=== PATIENT | female | born 1990 ===

== ENCOUNTER → 2018-11-06 | Outpatient (CLI) | payer OTHER ==
--- NOTE | 2018-11-06 12:27 | RADIOLOGY IMAGING REPORT ---
FACILITY: [facility] - [place] PATIENT NAME: Danielle Gordon : 1990 MR: [id number] V: [id number] EXAM DATE: ORDERING PHYSICIAN: MYNOR HOLT TECHNOLOGIST: [place] [facility] [place]le [place] : 1990 Visit/Account:[id number] Date of Sevice: 11/06/2018 GALLBLADDER History: 20-year-old female with abdominal pain. Comparison study: None Procedure: There has been satisfactory and complete grayscale ultrasonic evaluation of the abdomen. Findings: Liver: The liver has normal echotexture and no focal lesions are seen. Surface contour is smooth. The re is hepatopedal blood flow in the main portal vein and there is no abdominal ascites. Biliary: The gallbladder is normal and there is no gallstone disease or biliary ductal dilatation. T he sonographic Duffy sign is negative. The common bile duct measures 3.1 mm. Pancreas: Normal. No peripancreatic fluid collections seen. Kidneys: No hydronephrosis on the right side. Aorta and IVC: Flow is identified in both the aorta and IVC. IMPRESSION: 1. Normal abdominal ultrasound. Normal gallbladder without gallstone disease or biliary ductal dila tation. Report Dictated By: Andrei Nuñez MD at 11/06/2018 12:17 PM Report E-Signed By: Andrei Nuñez MD at 11/06/2018 12:19 PM WSN:[email or web address]
== END ==
LOC: US 10:27
PROVIDERS: ATTEND Family Medicine
DX: R10.11 Right upper quadrant pain (principal)
CPT/HCPCS: 76705